=== PATIENT | male | born 1980 | race Caucasian/White ===

== ENCOUNTER 2021-06-22 02:45 | Emergency (ER) | payer SELFPAY ==
[2021-06-22] MEDS ORDERED: Sodium Chloride 0.9% 1,000 ML ONE (03:12)
[2021-06-22] MEDS ORDERED: Pantoprazole 40 MG VIAL ONE (03:12)
[2021-06-22] MEDS ORDERED: Ondansetron PF 4 MG/2 ML Vial ONE (03:12)
[2021-06-22 03:21] LABS: #Lymphocytes 2.8 thou/uL (1.20-3.40); #Monocytes 0.8 thou/uL (0.11-0.59); %Basophils 0.4 % (0.0-1.0); %Eosinophils 0.4 % (0.0-10.0); %Lymphocytes 23.8 % (21.0-51.0); %Monocytes 6.4 % (0.0-10.0); %Neutrophils 69.1 % (42.0-75.0); Hemoglobin 14.5 g/dL (14.0-18.0); Mean Corpuscular HGB CONC 32.4 g/dL (32.0-36.0); Mean Corpuscular Hemoglobin 31.2 pg (27.0-31.0); Mean Corpuscular Volume 96.4 fL (78.0-98.0); Mean Platelet Volume 7.2 fL (7.4-10.4); Platelet Count 188 thou/uL (130-400); RBC Distribution Width 14.3 % (11.5-14.5); Red Blood Cell (RBC) Count 4.66 mill/uL (4.70-6.10); White Blood Cell (WBC) Count 11.6 thou/uL (4.8-10.8)
[2021-06-22 03:36] LABS: ALT (SGPT) 22 U/L (8-55); AST (SGOT) 22 U/L (5-34); Albumin 3.5 g/dL (3.5-5.0); Alcohol 113 mg/dL (Less than 10); Alkaline Phosphatase 82 U/L (40-110); Anion Gap 15 mmol/L (10-20); BUN (Urea Nitrogen) 11 mg/dL (8.9-20.6); Bilirubin, Total 0.3 mg/dL (0.2-1.2); Calc. Creatinine Clearance 0 mL/min (70-130); Calcium 9.6 mg/dL (7.8-10.44); Carbon Dioxide 24 mmol/L (22-29); Chloride 100 mmol/L (98-107); Globulin 3.3 g/dL (2.4-3.5); Glucose 84 mg/dL (70-105); Potassium 3.2 mmol/L (3.5-5.1); Protein, Total 6.8 g/dL (6.0-8.3); Sodium 136 mmol/L (136-145)
[2021-06-22 03:39] LABS: INR-International Normal Ratio 1.1
[2021-06-22] MEDS ORDERED: Sodium Chloride 0.9% 500 ML ONE (05:08)
[2021-06-22 05:27] LABS: Bilirubin Negative (Negative); Blood, Urine Trace (Negative); Clarity Clear (Clear); Glucose, Urine (Dipstick) Negative (Negative); Ketone, Urine Negative (Negative); Leukocyte Negative (Negative); Nitrite Negative (Negative); Protein, Urine (Dipstick) Negative (Neg-Trace); Urobilinogen 0.2 mg/dL (Less than 2)
[2021-06-22 05:28] LABS: Bacteria/HPF None Seen HPF (None Seen); Benzodiazepine Screen Detected (NotDetected); RBC/HPF 0-3 HPF (0-3); Squamous Epithelial None Seen HPF (0-3); THC/Cannabinoid Screen Detected (NotDetected); Tricyclic Screen Detected (NotDetected); WBC/HPF 0-3 HPF (0-3)
[2021-06-22 05:29] LABS: Amphetamine Not Detected (NotDetected); Barbiturates Screen Not Detected (NotDetected); Cocaine Metabolite Screen Not Detected (NotDetected); Medtox Control Line Valid? VALID (VALID); Methadone Not Detected (NotDetected); Methamphetamine Not Detected (NotDetected); Opiate Screen Not Detected (NotDetected); Oxycodone Screen Not Detected (NotDetected); Phencyclidine (PCP) Not Detected (NotDetected)
== END 2021-06-22 05:53 | disposition short-term general hospital (02) ==
LOC: NAV ERS 02:45
DX: K92.2 Gastrointestinal hemorrhage, unspecified (principal); F10.129 Alcohol abuse with intoxication, unspecified; I95.9 Hypotension, unspecified; I10 Essential (primary) hypertension; Y90.5 Blood alcohol level of 100-119 mg/100 ml; Z79.899 Other long term (current) drug therapy
CPT/HCPCS: 36430; 43753; 74018; 80053; 80306; 80307; 81003; 81015; 82271; 83605; 85025; 85610; 85730; 86850; 86900; 86901; 96374; 96375; C9113; J2405; J7030; J7050; P9016